=== PATIENT | female | born 1990 | race Caucasian/White ===

== ENCOUNTER 2017-07-04 08:49 | Emergency (ER) | payer OTHER ==
[2017-07-04] MEDS ORDERED: MAG HYDROX/AL HYDROX/SIMETH 30 ML, HYOSCYAMINE ELIXIR 10 ML, CIMETIDINE HCL 300 MG, LID... PO STA ×4 (09:20)
--- NOTE | 2017-07-04 09:22 | ED ---
General Adult HPI - General Chief complaint: Chest Pain Stated complaint: Chest pain Time Seen by Provider: 07/04/17 09:12 Source: patient, RN notes reviewed, old records reviewed Mode of arrival: wheelchair Limitations: no limitations - History of Present Illness Initial comments: this is a 27-year-old female presents emergency department today chief complaint of epigastric, and chest pain last night into today. Patient reports that she initially thought it was heartburn. She reports that she took Tums, and symptoms seemed to go away. She reports that the pain recurred, and she is concerned because it reoccurred this could be something other than heartburn. She wanted to come in for further evaluation. Patient reports that this morning she had the similar symptoms, she did take Zantac. She reports the emergency department states she has no pain at this time. She reports she has a family history of heart disease. She is a former smoker. She denies any shortness of breath, nausea, or other exacerbating symptoms. Patient relates that she has no fever, chills, shortness of breath, nausea, vomiting, abdominal pain or other symptoms. - Related Data Home Medications Medication Instructions Recorded Confirmed Lisinopril [Zestril] 10 mg PO HS 07/04/17 07/04/17 Previous Rx's Medication Instructions Recorded Omeprazole 40 mg PO DAILY #20 capsule. 07/04/17 Allergies Allergy/AdvReac Type Severity Reaction Status Date / Time No Known Allergies Allergy Verified 07/04/17 09:04 Review of Systems ROS Statement: Those systems with pertinent positive or pertinent negative responses have been documented in the HPI. ROS Other: All systems not noted in ROS Statement are negative. Past Medical History Past Medical History: Hypertension History of Any Multi-Drug Resistant Organisms: MRSA Date of last positivie culture/infection: abdomen, right axilla MDRO Source:: 2012 Past Surgical History: Cholecystectomy Past Psychological History: No Psychological Hx Reported Smoking Status: Former smoker Past Alcohol Use History: Rare Past Drug Use History: None Reported General Exam - General Exam Comments Initial Comments: 27-year-old female. No distress. Limitations: no limitations General appearance: alert, in no apparent distress Head exam: Present: atraumatic, normocephalic, normal inspection Eye exam: Present: normal appearance, PERRL, EOMI. Absent: scleral icterus, conjunctival injection, periorbital swelling ENT exam: Present: normal exam, mucous membranes moist Neck exam: Present: normal inspection. Absent: tenderness, meningismus, lymphadenopathy Respiratory exam: Present: normal lung sounds bilaterally. Absent: respiratory distress, wheezes, rales, rhonchi, stridor Cardiovascular Exam: Present: regular rate, normal rhythm, normal heart sounds. Absent: systolic murmur, diastolic murmur, rubs, gallop, clicks GI/Abdominal exam: Present: soft, tenderness (minimal epigastric tenderness), normal bowel sounds. Absent: distended, guarding, rebound, rigid Extremities exam: Present: normal inspection, full ROM, normal capillary refill. Absent: tenderness, pedal edema, joint swelling, calf tenderness Back exam: Present: normal inspection Neurological exam: Present: alert, oriented X3, CN II-XII intact Psychiatric exam: Present: normal mood Skin exam: Present: warm, dry, intact, normal color. Absent: rash Course Vital Signs 07/04/17 08:53 Temperature 97.1 F L Pulse Rate 86 Respiratory 16 Rate Blood Pressure 142/89 O2 Sat by Pulse 100 Oximetry Medical Decision Making - Medical Decision Making 27-year-old female presents today with epigastric pain radiating up her chest last night. Patient was given GI cocktail, and chest x-ray was reviewed and normal. EKG was reviewed and normal. Offered patient labwork to further chest pain. She reports she is afraid of needles and refuses this at this time. I believe patient's pain is related to epigastric region, she reports she's been drinking [employer] cider vinegar. I discussed starting on omeprazole. Discussed watching her diet and room voiding acidic foods. Patient agrees to treatment plan will comply. Return parameters were discussed. 07/04/17 10:20 EKG shows normal sinus rhythm, ventricular rate of 79 bpm. IA interval 176 most seconds. QRS duration 90 ms. QT QTc is 370/424 ms. No evidence of ST elevation or T-wave inversions. No evidence of a sharp ventricular arrhythmias. - Radiology Data Radiology results: report reviewed x-rays reviewed and negative for any acute process. Disposition Clinical Impression: Gastritis, GERD (gastroesophageal reflux disease) Disposition: HOME SELF-CARE Condition: Good Instructions: Diet for Stomach Ulcers and Gastritis (ED) Additional Instructions: patient has a follow-up with primary care physician. Return to emergency department if any alarming signs or symptoms occur. Prescriptions: Omeprazole 40 mg PO DAILY #20 capsule. Referrals: Cordell Graham DO [Primary Care Provider] - 1-2 days Time of Disposition: 10:19
--- NOTE | 2017-07-04 09:58 | XR ---
EXAMINATION TYPE: XR chest 2V DATE OF EXAM: 07/04/2017 COMPARISON: NONE TECHNIQUE: PA and lateral views submitted. HISTORY: Chest pain FINDINGS: The lungs are clear and there is no pneumothorax, pleural effusion, or focal pneumonia. IMPRESSION: 1. No acute process.
[2017-07-04 11:04] VITALS: BP 150/89; PULSE 77; RESP 18; TEMP 97.9
== END 2017-07-04 11:04 | disposition home or self-care (01) ==
LOC: EC 08:49
DX: K21.9 Gastro-esophageal reflux disease without esophagitis (principal); K29.70 Gastritis, unspecified, without bleeding; I10 Essential (primary) hypertension; Z87.891 Personal history of nicotine dependence; Z79.899 Other long term (current) drug therapy; Z86.14 Personal history of Methicillin resistant Staphylococcus aureus infection; Z90.49 Acquired absence of other specified parts of digestive tract
CPT/HCPCS: 71046; 93005; 99285

== ENCOUNTER → 2018-05-12 | Outpatient (CLI) | payer OTHER ==
[2018-05-12 10:51] LABS: Basophils % (A) 1 %; Eosinophils # (A) 0.1 k/uL (0-0.7); Eosinophils % (A) 2 %; HCT 43.4 % (34.0-46.0); HGB 14.9 gm/dL (11.4-16.0); Lymphocytes # (A) 2.5 k/uL (1.0-4.8); Lymphocytes % (A) 32 %; MCH 31.3 pg (25.0-35.0); MCHC 34.3 g/dL (31.0-37.0); MCV 91.4 fL (80.0-100.0); Mean Platelet Volume 8.2; Monocytes # (A) 0.4 k/uL (0-1.0); Monocytes % (A) 6 %; Neutrophils # (A) 4.7 k/uL (1.3-7.7); Neutrophils % (A) 59 %; Platelet Count 258 k/uL (150-450); RBC 4.75 m/uL (3.80-5.40); RDW 13.3 % (11.5-15.5); WBC 7.9 k/uL (3.8-10.6)
--- NOTE | 2018-05-12 13:26 | XR ---
EXAMINATION TYPE: XR cervical spine comp DATE OF EXAM: 05/12/2018 TECHNIQUE: Frontal, lateral, oblique, swimmers, and open mouth view of the cervical spine are obtaine d. HISTORY: R20.0 HAND NUMBNESS,M54.2 CERVICALGIA,M46.1 SACROILIITIS COMPARISON: None FINDINGS: There is straightening of the usual cervical lordosis. The cervical spine is visualized in its entirety from C1 thru the top of T1 level, it is satisfactory in alignment without evidence of ac srini fracture or dislocation. The pre-vertebral soft tissue appears within normal limits. The C1-C2 articulation is within normal limits on the open mouth view. The oblique images are within normal li mits. IMPRESSION: No acute fracture or dislocation is seen in the cervical spine. Straightening of the usu al cervical lordosis may relate to muscular sprain or spasm.
--- NOTE | 2018-05-12 13:33 | XR ---
EXAMINATION TYPE: XR sacroiliac joint comp BILAT DATE OF EXAM: 05/12/2018 COMPARISON: NONE HISTORY: Back pain and pelvic pain TECHNIQUE: 2 views of the bilateral sacroiliac joints were obtained. FINDINGS: Sacroiliac joints are symmetric without widening. No sacroiliac joint space sclerosis is se en. Note joint space air. No suspicious osseous lesion. Tubal ligation clips are seen within the pelv is. Osseous structures appear intact. IMPRESSION: No significant degenerative change of the sacroiliac joints are acute fracture of the vis ualized pelvis.
[2018-05-12 17:15] LABS: Vitamin D 25 Hydroxy 19.8 ng/mL (30.0-100.0)
[2018-05-12 17:39] LABS: Albumin 4.7 g/dL (3.80-4.90); Albumin/Globulin Ratio 2.14 (1.20-2.10); Anion Gap 10.3 mmol/L (4.00-12.00); Calcium 9.8 mg/dL (8.7-10.3); Carbon Dioxide 25.7 mmol/L (21.6-31.8); Globulin 2.2 g/dL (2.1-3.7); LDL Cholesterol,Calculated 116.8 mg/dL (0.0-131.0); Potassium 4.2 mmol/L (3.5-5.5); Total Bilirubin 0.5 mg/dL (0.3-1.2); Total Protein 6.9 g/dL (6.2-8.2); VLDL Calculation 26.2 mg/dL (5.00-40.00)
[2018-05-12 17:50] LABS: Hemoglobin A1C 5.3 % (4.0-6.0)
[2018-05-14 13:47] LABS: Folate, Serum 11.2 ng/mL
== END | disposition home or self-care (01) ==
LOC: LABWHC1 09:55
PROVIDERS: ATTEND Family Medicine
DX: M54.2 Cervicalgia (principal); M46.1 Sacroiliitis, not elsewhere classified; I10 Essential (primary) hypertension; R20.0 Anesthesia of skin; Z13.220 Encounter for screening for lipoid disorders; Z71.3 Dietary counseling and surveillance; Z71.82 Exercise counseling; Z68.41 Body mass index [BMI] 40.0-44.9, adult
CPT/HCPCS: 36415; 72050; 72202; 80053; 80061; 82306; 82607; 82746; 83036; 84443; 85025